=== PATIENT | female | born 1955 | race Caucasian/White ===

== ENCOUNTER → 2024-02-02 09:18 | Outpatient (REF) | payer OTHER, SELFPAY | LOC: RAD 09:18 | PROVIDERS: ATTENDING PHYSICIAN Physician Assistant Medical | DX: M81.0 Age-related osteoporosis without current pathological fracture (principal) | CPT/HCPCS: 77080 ==

== ENCOUNTER → 2024-04-08 16:23 | Outpatient (REF) | payer OTHER, SELFPAY | LOC: WDC 16:23 | PROVIDERS: ATTENDING PHYSICIAN Nurse Practitioner Family; FAMILY PHYSICIAN Physician Assistant Medical | DX: Z12.31 Encounter for screening mammogram for malignant neoplasm of breast (principal) | CPT/HCPCS: 77063; 77067 ==

== ENCOUNTER → 2024-12-10 10:11 | Outpatient (REF) | payer OTHER, SELFPAY | LOC: HWRCS 10:11 | PROVIDERS: ATTENDING PHYSICIAN Internal Medicine Cardiovascular Disease; FAMILY PHYSICIAN Physician Assistant Medical | DX: R00.2 Palpitations (principal) | CPT/HCPCS: 93306 ==

== ENCOUNTER 2025-04-27 18:34 | Emergency (ER) | payer OTHER, SELFPAY ==
[2025-04-27 18:48] VITALS: BP 130/79
[2025-04-27 19:24] LABS: Hematocrit 41.7 % (37.0-47.0); Hemoglobin 13.7 g/dL (12.0-16.0); Mean Corp Hgb Conc. 32.9 g/dL (33.0-37.0); Mean Corpuscular Hgb 29.6 pg (27.0-31.0); Mean Corpuscular Volume 90.1 fL (81.0-99.0); Platelet Count 165 10^3/uL (130-400); Red Blood Cell Count 4.63 10^6/uL (4.20-5.40); Red Cell Dist. Width 12.4 % (11.5-14.5); White Blood Cell Count 10.8 10^3/uL (4.8-10.8)
[2025-04-27 19:47] LABS: % Basophils 0.9 % (0-2); % Eosinophils 0.6 % (0-6); % Immature Granulocytes 0.6 % (0-0.5); % Lymphocytes 53.8 % (20.5-51.1); % Monocytes 8.2 % (1.7-9.3); % Neutrophils 35.9 % (42.2-75.2); Absolute Basophils 0.1 10^3/uL (0-0.2); Absolute Eosinophils 0.1 10^3/uL (0-0.7); Absolute Immature Granulocytes 0.1 10^3/uL (0-0.05); Absolute Lymphocytes 5.8 10^3/uL (1.2-3.4); Absolute Monocytes 0.9 10^3/uL (0.1-0.6); Absolute Neutrophils 3.9 10^3/uL (1.4-6.5); Nucleated Red Blood Cells % 0 %
[2025-04-27 19:48] LABS: ALT (SGPT) 179 U/L (0-35); AST (SGOT) 104 U/L (14-36); Alkaline Phosphatase 195 U/L (38-126); Blood Urea Nitrogen 16 mg/dl (7-17); Calcium 8.8 mg/dl (8.4-10.2); Carbon Dioxide 25 mmol/L (22-30); Chloride 105 mmol/L (98-107); Glucose 215 mg/dl (70-99); Potassium 5.1 mmol/L (3.5-5.1); Sodium 137 mmol/L (135-145); Total Bilirubin 0.9 mg/dl (0.2-1.3); eGFR > 60.00
--- NOTE | 2025-04-27 21:49 | ED.GENMED ---
History of Present Illness
General
Chief Complaint: Cough
Source: patient and family
Time Seen by Provider: 04/27/25 21:34
History of Present Illness
History of Present Illness:
This patient is a 69-year-old female presents emergency department with complaints of not feeling well for the last 2 weeks. She describes a dry cough associated with sometimes feeling like she cannot catch her breath and being achy and tired and
fatigued. She saw her family doctor on Monday, had a flu test that was negative but was prescribed amoxicillin. Of note, patient took a COVID test at home that was unremarkable. She has continued symptoms which prompted her visit here. She
notes mild anorexia but denies nausea, vomiting, chest pain or pressure, PND, orthopnea, abdominal pain, fever, leg swelling. She does report a postnasal drip. She denies ear pain or sore throat.
Past History
Past History
ED Past Medical History: Hypercholesterolemia
Social History
Tobacco: Non-smoker
Alcohol: Occasional
Drug: None
Living: alone
Phy Exam
Physical Exam
Physical Exam:
GENERAL: Alert , in no apparent distress
EYE: pupils equal and reactive
NECK: Supple, no significant adenopathy.
ENT: o/p clr, mmm.
CARDIAC: Regular rate and rhythm .
LUNGS: Clear breath sounds bilaterally, no acute respiratory distress, no rales or rhonchi, occasional wheezing noted, obvious dry cough noted
ABDOMEN: Soft, without focal tenderness, no r/g, no cvat
NEUROLOGICAL: Alert and oriented, no focal neuro deficits
SKIN: Warm and dry, skin intact.
MUSCULOSKELETAL: No edema, well perfused.
PSYCH: Normal and appropriate interaction.
Course
Orders/Labs/Results
Orders:
Orders
04/27/25 18:52
Electrocardiogram (*1) Urgent
Reason for Study: Shortness of Breath
EKG- Treatment ONCE
CR Chest - 2 Views Urgent
Comment:
Reason For Exam: cough, SOB
04/27/25 18:58
Complete Blood Count/With Diff Urgent
Comprehensive Metabolic Panel Urgent
04/27/25 21:49
Albuterol Nebs [Ventolin Nebules] 2.5 mg INH R NOW STA
04/27/25 21:57
COVID-19 Antigen Urgent
Source: Nasal Swab
Influenza A+B Rapid Molecular Urgent
CASSIDY Source: Nasal Swab
Specimen Description:
04/27/25 22:58
Prednisone [Deltasone] 50 mg PO NOW STA
Abnormal Lab Results
04/27/25
18:58
MCHC 32.9 L g/dL
(33.0-37.0)
Abs Immat Gran (auto) 0.1 H 10^3/uL
(0-0.05)
Absolute Lymphs (auto) 5.8 H 10^3/uL
(1.2-3.4)
Absolute Monos (auto) 0.9 H 10^3/uL
(0.1-0.6)
Immature Gran % 0.6 H %
(0-0.5)
Neutrophils % 35.9 L %
(42.2-75.2)
Lymphocytes % 53.8 H %
(20.5-51.1)
Glucose 215 H mg/dl
(70-99)
AST 104 H U/L
(14-36)
ALT 179 H U/L
(0-35)
Alkaline Phosphatase 195 H U/L
(38-126)
04/27/25 18:58
04/27/25 18:58
Vital Signs
Initial and Last Documented VS:
Initial Vital Signs
Temp Pulse Resp BP Pulse Ox
99.3 F 82 20 130/79 99
04/27/25 18:48 04/27/25 18:48 04/27/25 18:48 04/27/25 18:48 04/27/25 18:48
Last Documented Vital Signs
Temp Pulse Resp BP Pulse Ox
99.3 F 82 20 130/79 97
04/27/25 18:48 04/27/25 18:48 04/27/25 18:48 04/27/25 18:48 04/27/25 22:04
*Pulse Oximetry
SaO2: 99
Oxygen Mode of Delivery: Room air
*Critical Care Note
Total Time (30-74mins, 75-104mins- exclusive of procedures): Not Applicable
Update Note
Update Note:
Patient presents to the Emergency Department with ___cough fatigue etc.
Number and Complexity of Problems Addressed at the Encounter
� Chronic conditions affecting care:
� Acute Exacerbation and/or Progression of Chronic Illness:
� Differential Diagnosis includes: But not limited to COVID, flu, bronchitis, viral pneumonia, bacterial pneumonia, reflux, etc. etc.
Amount and/or Complexity of Data to be Reviewed and Analyzed
� I performed an independent evaluation of and my interpretation is:
EKG: Read by me, normal sinus rhythm, normal rate, normal axis, no acute ischemia
CT:
Xrays: Chest x-ray read by me NAD
Laboratory Studies: Generally unremarkable however LFT abnormalities which will need to be closely followed up. Patient given copy of labs and advised to do so. She does not have abdominal tenderness palpation, jaundice,
history of heavy alcohol use, history of heavy acetaminophen use, etc.
Other:
� Review of other/old records reveals:
� Clinical information was obtained by an independent historian: Daughter who is bedside
� Prescriptions/Medications Considered but not given:
� Further testing considered but not performed:
Risk of Complications and/or Morbidity or Mortality of Patient Management
� Social determinants of health affecting care:
� Discussion with other providers (PCP, Hospitalists, Consultants, etc):
� Escalation of care including admission/observation vs risk of discharge considered: 11:01 PM patient feels better status post nebulizer treatment here, wheezing resolved. Recommend steroids and albuterol in addition to the
antibiotics that she is already taking. Suspect bronchospasm as a part of her symptomatology. I do not see indication for changing antibiotic or other treatment at this time. Again made aware of importance of follow-up and reasons return to the
ER particularly regarding abnormalities noted here.
ED Attending Note
-
Portions of this chart may have been created with voice recognition software.� Occasional wrong word or��sound alike� substitutions may have occurred due to the inherent limitations of voice recognition software.
Discharge Plan
Departure
Patient Disposition: Home (Routine Discharge)
Date of Disposition: 04/27/25
Time of Disposition: 22:59
Patient with high blood pressure during this ER visit?: Yes
Condition: Good
Discharge Problem:
Cough
Instructions: Cough, Adult (DC), BLOOD PRESSURE
Prescriptions:
New
prednisone 50 mg tablet
50 mg PO DAILY Qty: 4 0RF
albuterol-budesonide 90-80 mcg/actuation HFA aerosol inhaler
2 inh inhalation Q4HPRN PRN (Reason: shortness of breath) Qty: 5.9 0RF
Referrals:
UNKNOWN - PT DOES,NOT KNOW [Family Provider]
Stand Alone Forms: Return to Work
Activity Restrictions/Additional Instructions:
PLEASE SEE ATTACHED BLOOD TEST RESULTS, YOU HAVE ABNORMALITIES PRICKLY WITH YOUR LIVER FUNCTION TEST THAT NEED TO BE ADDRESSED WITH YOUR PRIMARY CARE DOCTOR SOON POSSIBLE. IF YOU DEVELOP INCREASING COUGH, BLEEDING, DIZZINESS, CHEST PAIN,
INCREASING SHORTNESS OF BREATH, GET WORSE, OR OTHER WORRISOME SIGNS, PLEASE RETURN TO THE ER IMMEDIATELY!
Interventions
Interventions:
*Risk Screen - Suicide Last Done: 04/27/25 18:48
*General Assessment Last Done: 04/27/25 18:48
*Neglect/Abuse Screening Last Done: 04/27/25 18:48
*ED- Fall Risk Assessment Last Done: 04/27/25 22:04
ED- Pulmonary Assessment Last Done: 04/27/25 22:04
Discharge Date and Time
Print Language: MALDIVIAN
[2025-04-27] MEDS: VENTOLIN NEBULES 2.5 MG INH (21:53)
[2025-04-27 22:21] LABS: COVID-19 Antigen Negative (Negative)
[2025-04-27] MEDS: DELTASONE 50 MG PO (23:05)
== END 2025-04-27 23:15 | disposition home or self-care (01) ==
LOC: EMR 18:34
PROVIDERS: EMERGENCY PHYSICIAN Emergency Medicine
DX: R05.9 Cough, unspecified (principal); R53.83 Other fatigue; R06.02 Shortness of breath; R09.82 Postnasal drip; R63.0 Anorexia; Z11.52 Encounter for screening for COVID-19; R03.0 Elevated blood-pressure reading, without diagnosis of hypertension; R94.5 Abnormal results of liver function studies; E78.00 Pure hypercholesterolemia, unspecified; Z88.1 Allergy status to other antibiotic agents
CPT/HCPCS: 99283; 94640; 71046; 80053; 85025; 87502; 87811; 93005

== ENCOUNTER 2025-05-08 18:07 | Emergency (ER) | payer OTHER, SELFPAY ==
[2025-05-08 18:09] VITALS: BP 141/77
[2025-05-08 18:30] VITALS: BMI 26.6
[2025-05-08 18:31] VITALS: BP 126/74
[2025-05-08 18:53] LABS: Hematocrit 37.8 % (37.0-47.0); Hemoglobin 12.6 g/dL (12.0-16.0); Mean Corp Hgb Conc. 33.3 g/dL (33.0-37.0); Mean Corpuscular Volume 89.6 fL (81.0-99.0); Platelet Count 234 10^3/uL (130-400); Red Cell Dist. Width 12.5 % (11.5-14.5)
[2025-05-08 19:00] VITALS: BP 114/68
[2025-05-08 19:11] LABS: ALT (SGPT) 38 U/L (0-35); AST (SGOT) 27 U/L (14-36); Albumin 3.7 g/dl (3.5-5.0); Alkaline Phosphatase 71 U/L (38-126); Blood Urea Nitrogen 28 mg/dl (7-17); Calcium 8.9 mg/dl (8.4-10.2); Carbon Dioxide 28 mmol/L (22-30); Chloride 103 mmol/L (98-107); Estimated Creatinine Clearance 78 ml/min; Glucose 200 mg/dl (70-99); Potassium 4.4 mmol/L (3.5-5.1); Sodium 136 mmol/L (135-145); Total Protein 6.8 g/dl (6.3-8.2); eGFR > 60.00
[2025-05-08 19:24] LABS: Nucleated Red Blood Cells % 0 %
--- NOTE | 2025-05-08 19:57 | ED.GENMED ---
History of Present Illness
General
Chief Complaint: Swelling
Source: patient
Exam Limitations: none
Time Seen by Provider: 05/08/25 19:31
Nursing documentation reviewed up to this point in time: agreed with
History of Present Illness
History of Present Illness:
Patient currently on doxycycline x 5 days along with prednisone, secondary to viral cough, presents to ED secondary to sudden onset of lower leg swelling, noted at the end of her work this afternoon. In addition, patient reports itchy rash noted in
her upper arm, neck, and face today as well. Denies fever or chills. Denies chest pain or shortness of breath. Denies nausea, vomiting, or diarrhea. Despite taking second course of antibiotics as well as second round of prednisone, patient
states that her cough is continuing. Denies loss of appetite. Denies difficulty sleeping.
Past History
Past History
ED Past Medical History: Hypercholesterolemia
Social History
Tobacco: Non-smoker
Alcohol: Occasional
Drug: None
Living: alone
Review of Systems
Review of Systems
Allergies reviewed?: Yes
All Other Systems: ROS reviewed and negative except as documented in HPI and ROS
Constitutional: Reports no symptoms; Denies fever
Respiratory: Reports cough; Denies trouble breathing
Cardiac: Reports no symptoms
ABD/GI: Reports no symptoms; Denies vomiting or diarrhea
Musculoskeletal: Reports edema
Skin: Reports itching and rash
Neurological: Reports no symptoms
Phy Exam
Physical Exam
Physical Exam:
Physical Exam
General: no apparent distress, not acutely ill. afebrile
Head: nc/at. eomi
Neck: supple. no meningeal signs.
Heart: s1/s2 regular rate and rhythm, no murmur. equal radial pulses.
Lungs: no acute respiratory distress. clear bilaterally
Abdomen: normal bowel sounds. not tender.
Neuro: alert and oriented x 3. no focal neurological deficits
Skin: macular rash noted over neck/bilateral UE.
Psychiatric: well kept. interactive and cooperative
Extremities: no edema. no calf tenderness.
Scores
Heart Failure Risk
Heart Failure Risk Score: Not Applicable
Course
Orders/Labs/Results
Orders:
Orders
05/08/25 18:45
CMP [Comprehensive Metabolic Panel] Urgent
Complete Blood Count/With Diff Urgent
Abnormal Lab Results
05/08/25
18:45
Abs Immat Gran (auto) 0.2 H 10^3/uL
(0-0.05)
Absolute Lymphs (auto) 4.4 H 10^3/uL
(1.2-3.4)
Absolute Monos (auto) 0.8 H 10^3/uL
(0.1-0.6)
Immature Gran % 1.8 H %
(0-0.5)
Neutrophils % 41.9 L %
(42.2-75.2)
BUN 28 H mg/dl
(7-17)
Glucose 200 H mg/dl
(70-99)
ALT 38 H U/L
(0-35)
05/08/25 18:45
05/08/25 18:45
Vital Signs
Initial and Last Documented VS:
Initial Vital Signs
Temp Pulse Resp BP Pulse Ox
98.5 F 67 18 141/77 98
05/08/25 18:09 05/08/25 18:09 05/08/25 18:09 05/08/25 18:09 05/08/25 18:09
Last Documented Vital Signs
Temp Pulse Resp BP Pulse Ox
98.7 F 63 17 114/68 97
05/08/25 18:31 05/08/25 19:45 05/08/25 19:45 05/08/25 19:00 05/08/25 19:57
MDM/Problems Addressed
MDM/Problems Addressed:
History and exam consistent with symptoms, likely secondary to current use of doxycycline and prednisone. Otherwise, patient is afebrile, hemodynamically stable, and nontoxic-appearing, at time of discharge. Patient will be advised to discontinue
both medications, and use Benadryl/Zyrtec for symptomatic relief, as well as PCP follow-up next week.
*Pulse Oximetry
SaO2: 97
Oxygen Mode of Delivery: Room air
Patient hypoxic: no
*Critical Care Note
Total Time (30-74mins, 75-104mins- exclusive of procedures): Not Applicable
ED Attending Note
-
Portions of this chart may have been created with voice recognition software.� Occasional wrong word or��sound alike� substitutions may have occurred due to the inherent limitations of voice recognition software.
Discharge Plan
Departure
Patient Disposition: Home (Routine Discharge)
Date of Disposition: 05/08/25
Time of Disposition: 19:57
Patient with high blood pressure during this ER visit?: Yes
Condition: Good
Discharge Problem:
Leg swelling, Rash
Instructions: Swelling, Skin rash - ED discharge instructions
Prescriptions:
No Action
prednisone 50 mg tablet
50 mg PO DAILY Qty: 4 0RF
albuterol-budesonide 90-80 mcg/actuation HFA aerosol inhaler
2 inh inhalation Q4HPRN PRN (Reason: shortness of breath) Qty: 5.9 0RF
Referrals:
aTmie Verma PA [Family Provider, Family Practice]
Activity Restrictions/Additional Instructions:
As discussed, please discontinue your antibiotics and prednisone immediately, as they may be contributing to your presenting symptoms. In the meantime, you may take Benadryl and/or Zyrtec/Claritin, for symptomatic relief for your itchy rash.
Interventions
Interventions:
*Risk Screen - Suicide Last Done: 05/08/25 18:09
*General Assessment Last Done: 05/08/25 18:09
*Neglect/Abuse Screening Last Done: 05/08/25 18:09
*ED- Fall Risk Assessment Last Done: 05/08/25 18:30
*ED COVID-19 Vaccine History Last Done: 05/08/25 18:09
*Nursing Disposition Last Done: 05/08/25 20:04
ED-Skin Assessment Last Done: 05/08/25 18:35
ED- Pulmonary Assessment Last Done: 05/08/25 18:35
ED- Cardiac Assessment Last Done: 05/08/25 18:35
Discharge Date and Time
Discharge Date/Time: 05/08/25 20:06
Print Language: [id number]
== END 2025-05-08 20:06 | disposition home or self-care (01) ==
LOC: EMR 18:07
PROVIDERS: EMERGENCY PHYSICIAN Emergency Medicine; FAMILY PHYSICIAN Physician Assistant Medical
DX: R22.43 Localized swelling, mass and lump, lower limb, bilateral (principal); R21 Rash and other nonspecific skin eruption; R03.0 Elevated blood-pressure reading, without diagnosis of hypertension
CPT/HCPCS: 99283; 80053; 85025

== ENCOUNTER → 2025-05-27 17:06 | Outpatient (REF) | payer OTHER, SELFPAY | LOC: WDC 17:06 | PROVIDERS: ATTENDING PHYSICIAN Obstetrics & Gynecology; FAMILY PHYSICIAN Physician Assistant Medical | DX: Z12.31 Encounter for screening mammogram for malignant neoplasm of breast (principal) | CPT/HCPCS: 77063; 77067 ==

== ENCOUNTER → 2025-08-02 06:37 | Outpatient (REF) | payer OTHER, SELFPAY | LOC: MRI 3T 06:37 | PROVIDERS: ATTENDING PHYSICIAN Orthopaedic Surgery; FAMILY PHYSICIAN Physician Assistant Medical | DX: M25.562 Pain in left knee (principal) | CPT/HCPCS: 73721 ==

== ENCOUNTER → 2025-08-29 07:22 | Outpatient (REF) | payer OTHER, SELFPAY ==
[2025-08-29 08:19] LABS: Hematocrit 40.9 % (37.0-47.0); Hemoglobin 13.3 g/dL (12.0-16.0); Mean Corp Hgb Conc. 32.5 g/dL (33.0-37.0); Mean Corpuscular Volume 88.0 fL (81.0-99.0); Nucleated Red Blood Cells % 0 %; Platelet Count 256 10^3/uL (130-400); Red Cell Dist. Width 12.0 % (11.5-14.5)
[2025-08-29 08:43] LABS: Blood Urea Nitrogen 21 mg/dl (7-17); Calcium 9.4 mg/dl (8.4-10.2); Carbon Dioxide 30 mmol/L (22-30); Chloride 102 mmol/L (98-107); Glucose 127 mg/dl (70-99); Potassium 4.5 mmol/L (3.5-5.1); Sodium 139 mmol/L (135-145); eGFR > 60.00
== END ==
LOC: REG 07:22
PROVIDERS: ATTENDING PHYSICIAN Orthopaedic Surgery; FAMILY PHYSICIAN Physician Assistant Medical
DX: Z01.818 Encounter for other preprocedural examination (principal)
CPT/HCPCS: 36415; 80048; 85025